=== PATIENT | male | born 1990 | race Caucasian/White ===

== ENCOUNTER 2022-08-24 17:54 | Emergency (ER) | payer SELFPAY ==
[~2022-08-24] VITALS: Ht 185.4 cm; Wt 136.0 kg
[2022-08-24 18:04] VITALS: BP 198/105
[2022-08-24] MEDS ORDERED: CLIN30GE2 TOP (18:13)
[2022-08-24] MEDS ORDERED: SULF1TAB49 PO (18:13)
[2022-08-24] MEDS ORDERED: DOXY-1 PO (18:13)
== END 2022-08-24 18:22 | disposition home or self-care (01) ==
LOC: ER 17:56
DX: S31.103A Unspecified open wound of abdominal wall, right lower quadrant without penetration into peritoneal cavity, initial encounter (principal); Z56.0 Unemployment, unspecified; Z79.899 Other long term (current) drug therapy; X58.XXXA Exposure to other specified factors, initial encounter; Y93.89 Activity, other specified; Y92.89 Other specified places as the place of occurrence of the external cause; Y99.8 Other external cause status
CPT/HCPCS: 99283

== ENCOUNTER 2024-07-08 15:50 | Inpatient (IN) | payer BC ==
[~2024-07-08] VITALS: Ht 182.9 cm; Wt 108.8 kg
[~2024-07-08 15:50] MED LIST: CLIN30GE2 TOP
[2024-07-08] MEDS: piperacillin/tazo 4.5gm/100ml 100 ML IV ONE (16:05)
[2024-07-08] MEDS ORDERED: VANCOMYCIN 1GM 200ML H20 (PEG) 200 ML IV ONE (16:05)
[2024-07-08] MEDS: normal saline 1000ML IV soln IVB ONE (16:18)
[2024-07-08] MEDS: ondansetron/PF 4mg/2ml inj IV ONE (16:19)
[2024-07-08] MEDS: morphine 4 MG/ML inj SYRINge IV ONE ×2 (16:29→16:41)
[2024-07-08] MEDS: vancomycin/NS 1 GM ADD-VANTAGE 250 ML X 1 DOSE IV ONE (16:36)
[2024-07-08 16:39] LABS: BASOPHILS % (AUTO) 0.3 % (0-1); EOSINOPHILS % (AUTO) 0.1 % (0-6); HEMATOCRIT 38.2 % (42.0-52.0); HEMOGLOBIN 13.1 g/dl (14.0-17.9); LYMPHOCYTES % (AUTO) 7.1 % (21-51); MEAN CORPUSCULAR HEMOGLOBIN 28.1 PG (27.0-31.0); MEAN CORPUSCULAR HGB CONC 34.4 g/dL (33.0-36.5); MEAN CORPUSCULAR VOLUME 81.8 FL (78-98); MEAN PLATELET VOLUME 6.7 FL (7.4-10.4); MONOCYTES # (AUTO) 0.7 X10'3 (0-0.9); MONOCYTES % (AUTO) 5.3 % (2-12); NEUTROPHILS % (AUTO) 87.2 % (42-75); PLATELET COUNT 176 X10'3 (140-440); RED BLOOD COUNT 4.67 X10'6 (4.70-6.10); RED CELL DISTRIBUTION WIDTH 13.2 % (11.5-14.5); WHITE BLOOD COUNT 13.8 X10'3 (4.5-11.0)
[2024-07-08 16:53] LABS: ALANINE AMINOTRANSFERASE 17 U/L (12-78); ALBUMIN 2.7 G/DL (3.4-5.0); ALBUMIN/GLOBULIN RATIO 0.7 (1.1-1.5); ALKALINE PHOSPHATASE 63 IU/L (46-116); ANION GAP 15 (8-16); ASPARTATE AMINO TRANSFERASE 13 U/L (10-37); BILIRUBIN,TOTAL 0.9 MG/DL (0.1-1.0); BLOOD UREA NITROGEN 11 MG/DL (7-18); BUN/CREATININE RATIO 13.6 (10.0-20.0); CALCIUM 8.2 MG/DL (8.5-10.1); CHLORIDE 100 MMOL/L (99-107); CREATININE 0.81 MG/DL (0.60-1.10); GLUCOSE 234 MG/DL (70-104); POTASSIUM 3.4 MMOL/L (3.5-5.1); SODIUM 135 MMOL/L (135-145); TOTAL CARBON DIOXIDE 19.9 MMOL/L (24-32); TOTAL PROTEIN 6.6 G/DL (6.4-8.2); eCRCL 140 ML/MIN; eGFR > 90 ML/MIN
[2024-07-08 16:56] LABS: CREATINE KINASE 82 U/L (39-308); LACTATE DEHYDROGENASE 172 U/L (85-227); MAGNESIUM 1.4 MG/DL (1.5-2.4)
[2024-07-08] MEDS ORDERED: iohexol 300mg/ml 100ml inj. ONE (16:56)
[2024-07-08] MEDS: metoclopramide 5 mg/ml inj IV ONE (19:09)
[2024-07-08] MEDS ORDERED: potassium Cl 40MEQ/1/2NS 520ml 520 ML IV PRN (20:10)
[2024-07-08] MEDS ORDERED: magnesium sulf-water 2g/50mL 50 ML IV PRN (20:10)
[2024-07-08] MEDS ORDERED: mag hydrox/Alum hydrox/simeth 30ml oral suspension PO PRN (20:10)
[2024-07-08] MEDS ORDERED: magnesium Cl slow-release 64mg tablet PO PRN (20:10)
[2024-07-08] MEDS ORDERED: magnesium sulf-water 4G/100mL 100 ML IV PRN (20:10)
[2024-07-08] MEDS ORDERED: potassium Cl 20 mEq SR tablet PO PRN (20:10)
[2024-07-08 20:32] LABS: HEMOGLOBIN A1C 10.7 % (4.5-6.2)
[2024-07-08] MEDS ORDERED: glucagon, human recombinant 1mg kit SUBCUT PRN (20:50)
[2024-07-08] MEDS ORDERED: dextrose 50%-water 50ml dispensing syringe IV PRN ×2 (20:50)
[2024-07-08] MEDS ORDERED: DEXTROSE 15 GM of carb/4 tabs (each vial/BOTTLE has 4 tablets) PO PRN ×2 (20:50)
[2024-07-08] MEDS: INSULIN LISPRO 100 UNIT/ML INSULN.PEN MULTI-DOSE SQ SCH (21:49)
[2024-07-08] MEDS: insulin glargine (Lantus) pen - multi-dose SQ SCH (21:50)
[2024-07-08 22:15] VITALS: BP 113/69; PULSE 116; RESP 14; TEMP 100.3; O2SAT 96
[2024-07-08] MEDS ORDERED: NO HOME MEDS (22:44)
[2024-07-08 22:45] LABS: % IRON SATURATION 4 % (11-46); IRON 8 UG/DL (53-167); TOTAL IRON BINDING CAPACITY 188 UG/DL (259-388)
[2024-07-08 22:46] LABS: FERRITIN 550 NG/ML (26-388)
[2024-07-08] MEDS: pantoprazole 40mg Tablet.DR PO SCH (23:05)
[2024-07-08] MEDS: normal saline 1000ml 1,000 ML IV SCH (23:05)
[2024-07-09] VITALS (7 sets, daily range): BP systolic 124–146; BP diastolic 71–89; PULSE 80–109; RESP 18–19; TEMP 97.9–99.9; O2SAT 92–97
[2024-07-09] MEDS: vancomycin/NS 1 GM ADD-VANTAGE 250 ML IV SCH (00:07)
[2024-07-09] MEDS: piperacillin/tazo 3.375gm/50ml 50 ML IV SCH (02:19)
[2024-07-09 05:55] LABS: BASOPHILS % (AUTO) 0.1 % (0-1); EOSINOPHILS % (AUTO) 0 % (0-6); HEMATOCRIT 35.7 % (42.0-52.0); HEMOGLOBIN 12.2 g/dl (14.0-17.9); LYMPHOCYTES % (AUTO) 7.7 % (21-51); MEAN CORPUSCULAR HEMOGLOBIN 28.4 PG (27.0-31.0); MEAN CORPUSCULAR HGB CONC 34.1 g/dL (33.0-36.5); MEAN CORPUSCULAR VOLUME 83.3 FL (78-98); MEAN PLATELET VOLUME 7.1 FL (7.4-10.4); MONOCYTES % (AUTO) 7.9 % (2-12); NEUTROPHILS # (AUTO) 11.1 X10'3 (1.8-7.7); NEUTROPHILS % (AUTO) 84.3 % (42-75); PLATELET COUNT 138 X10'3 (140-440); RED BLOOD COUNT 4.29 X10'6 (4.70-6.10); RED CELL DISTRIBUTION WIDTH 13.6 % (11.5-14.5); WHITE BLOOD COUNT 13.2 X10'3 (4.5-11.0)
[2024-07-09] MEDS: acetaminophen 325mg tablet PO PRN (06:11)
[2024-07-09 07:00] LABS: ALANINE AMINOTRANSFERASE 17 U/L (12-78); ALBUMIN 2.4 G/DL (3.4-5.0); ALBUMIN/GLOBULIN RATIO 0.6 (1.1-1.5); ALKALINE PHOSPHATASE 55 IU/L (46-116); ANION GAP 12 (8-16); ASPARTATE AMINO TRANSFERASE 14 U/L (10-37); BILIRUBIN,TOTAL 0.5 MG/DL (0.1-1.0); BLOOD UREA NITROGEN 14 MG/DL (7-18); BUN/CREATININE RATIO 19.2 (10.0-20.0); CALCIUM 8.1 MG/DL (8.5-10.1); CHLORIDE 101 MMOL/L (99-107); CHOL/HDL RATIO 4.1 (0.00-4.99); CHOLESTEROL 69 MG/DL (0-200); CREATININE 0.73 MG/DL (0.60-1.10); GLUCOSE 187 MG/DL (70-104); HDL CHOLESTEROL 17 MG/DL (35-60); LDL CHOLESTEROL 28 MG/DL (50-100); MAGNESIUM 1.7 MG/DL (1.5-2.4); POTASSIUM 3.7 MMOL/L (3.5-5.1); SODIUM 135 MMOL/L (135-145); TOTAL CARBON DIOXIDE 22.1 MMOL/L (24-32); TOTAL PROTEIN 6.1 G/DL (6.4-8.2); TRIGLYCERIDES 137 MG/DL (20-135); eCRCL 155 ML/MIN; eGFR > 90 ML/MIN
[2024-07-09] MEDS: docusate sod 100mg capsule PO SCH (07:53)
[2024-07-09] MEDS: morphine 2 MG/ML inj. syringe IV PRN ×2 (07:56→17:54)
[2024-07-09] MEDS: K and/or MAG REPLACEMENT MC SCH (08:00)
[2024-07-09] MEDS: ondansetron/PF 4mg/2ml inj IV PRN (10:26)
[2024-07-09] MEDS ORDERED: metoclopramide 10mg tablet PO PRN (12:25)
[2024-07-09] MEDS: VANCOMYCIN LEVEL IV ONE (13:52)
[2024-07-09] MEDS: VANCOMYCIN 1.75GM/WATER FOR INJ (PEG) 350 ML IVPB IV SCH (22:24)
[2024-07-09] MEDS ORDERED: HYDROcodone/acetaminophen 5mg/325mg tablet PO ONE (22:40)
[2024-07-09] MEDS: HYDROmorphone inj. 0.5 MG/0.5 ML DISP.SYRIN IV ONE (23:02)
[2024-07-10] VITALS (7 sets, daily range): BP systolic 126–135; BP diastolic 70–83; PULSE 88–91; RESP 16–20; TEMP 98.2–98.4; O2SAT 93–96
[2024-07-10] MEDS: HYDROmorphone inj. 0.5 MG/0.5 ML DISP.SYRIN IV ONE (03:51)
[2024-07-10 05:37] LABS: BASOPHILS % (AUTO) 0.2 % (0-1); EOSINOPHILS % (AUTO) 0.2 % (0-6); HEMATOCRIT 34.8 % (42.0-52.0); HEMOGLOBIN 11.8 g/dl (14.0-17.9); LYMPHOCYTES # (AUTO) 1.4 X10'3 (1.1-4.8); MEAN CORPUSCULAR HEMOGLOBIN 27.8 PG (27.0-31.0); MEAN CORPUSCULAR HGB CONC 33.8 g/dL (33.0-36.5); MEAN CORPUSCULAR VOLUME 82.2 FL (78-98); MEAN PLATELET VOLUME 7.5 FL (7.4-10.4); MONOCYTES # (AUTO) 0.9 X10'3 (0-0.9); MONOCYTES % (AUTO) 6.7 % (2-12); NEUTROPHILS # (AUTO) 10.7 X10'3 (1.8-7.7); NEUTROPHILS % (AUTO) 81.9 % (42-75); PLATELET COUNT 147 X10'3 (140-440); RED BLOOD COUNT 4.24 X10'6 (4.70-6.10); WHITE BLOOD COUNT 13.1 X10'3 (4.5-11.0)
[2024-07-10 06:16] LABS: ALANINE AMINOTRANSFERASE 16 U/L (12-78); ALBUMIN 2.1 G/DL (3.4-5.0); ALBUMIN/GLOBULIN RATIO 0.5 (1.1-1.5); ALKALINE PHOSPHATASE 69 IU/L (46-116); ANION GAP 10 (8-16); ASPARTATE AMINO TRANSFERASE 11 U/L (10-37); BILIRUBIN,TOTAL 0.5 MG/DL (0.1-1.0); BLOOD UREA NITROGEN 16 MG/DL (7-18); BUN/CREATININE RATIO 23.9 (10.0-20.0); CALCIUM 7.7 MG/DL (8.5-10.1); CHLORIDE 98 MMOL/L (99-107); CREATININE 0.67 MG/DL (0.60-1.10); GLUCOSE 183 MG/DL (70-104); MAGNESIUM 2.1 MG/DL (1.5-2.4); POTASSIUM 3.8 MMOL/L (3.5-5.1); SODIUM 131 MMOL/L (135-145); TOTAL CARBON DIOXIDE 23.5 MMOL/L (24-32); eCRCL 169 ML/MIN; eGFR > 90 ML/MIN
[2024-07-10] MEDS: HYDROmorphone inj. 0.5 MG/0.5 ML DISP.SYRIN IV PRN (09:14)
[2024-07-10] MEDS: metoclopramide 5 mg/ml inj IV PRN (18:05)
[2024-07-10] MEDS: temazepam 15mg capsule PO PRN (20:52)
[2024-07-11] VITALS (21 sets, daily range): BP systolic 119–169; BP diastolic 72–99; PULSE 92–110; RESP 13–23; TEMP 98.1–99.2; O2SAT 91–100
[2024-07-11 06:03] LABS: BASOPHILS % (AUTO) 0.3 % (0-1); EOSINOPHILS % (AUTO) 0.3 % (0-6); HEMATOCRIT 36.2 % (42.0-52.0); HEMOGLOBIN 12.2 g/dl (14.0-17.9); LYMPHOCYTES # (AUTO) 1.3 X10'3 (1.1-4.8); LYMPHOCYTES % (AUTO) 9.3 % (21-51); MEAN CORPUSCULAR HEMOGLOBIN 27.8 PG (27.0-31.0); MEAN CORPUSCULAR HGB CONC 33.7 g/dL (33.0-36.5); MEAN CORPUSCULAR VOLUME 82.3 FL (78-98); MEAN PLATELET VOLUME 7.2 FL (7.4-10.4); MONOCYTES # (AUTO) 1.1 X10'3 (0-0.9); NEUTROPHILS # (AUTO) 11.1 X10'3 (1.8-7.7); NEUTROPHILS % (AUTO) 82.1 % (42-75); PLATELET COUNT 180 X10'3 (140-440); RED CELL DISTRIBUTION WIDTH 13.8 % (11.5-14.5); WHITE BLOOD COUNT 13.5 X10'3 (4.5-11.0)
[2024-07-11 06:16] LABS: APTT 28 SECONDS (22-32); INR 1.2 INR; PROTHROMBIN TIME 12.3 SECONDS (9.0-12.0)
[2024-07-11 06:35] LABS: ALANINE AMINOTRANSFERASE 15 U/L (12-78); ALBUMIN 1.9 G/DL (3.4-5.0); ALBUMIN/GLOBULIN RATIO 0.5 (1.1-1.5); ALKALINE PHOSPHATASE 78 IU/L (46-116); ANION GAP 12 (8-16); ASPARTATE AMINO TRANSFERASE 16 U/L (10-37); BILIRUBIN,TOTAL 0.6 MG/DL (0.1-1.0); BLOOD UREA NITROGEN 14 MG/DL (7-18); BUN/CREATININE RATIO 23.7 (10.0-20.0); CALCIUM 7.6 MG/DL (8.5-10.1); CHLORIDE 97 MMOL/L (99-107); CREATININE 0.59 MG/DL (0.60-1.10); GLUCOSE 183 MG/DL (70-104); MAGNESIUM 1.9 MG/DL (1.5-2.4); POTASSIUM 3.4 MMOL/L (3.5-5.1); SODIUM 132 MMOL/L (135-145); TOTAL CARBON DIOXIDE 23.2 MMOL/L (24-32); eCRCL 192 ML/MIN; eGFR > 90 ML/MIN
[2024-07-11] MEDS: VANCOMYCIN LEVEL IV ONE ×2 (07:38→22:05)
[2024-07-11] MEDS: potassium Cl 20 mEq SR tablet PO PRN (07:39)
[2024-07-11] MEDS ORDERED: enalaprilat 1.25mg/ml 2ml vial IV PRN (11:30)
[2024-07-11] MEDS ORDERED: labetalol 20mg/4ml (5mg/ml) syringe IV PRN (11:30)
[2024-07-11] MEDS ORDERED: morphine 2 MG/ML inj. syringe IV PRN (11:30)
[2024-07-11] MEDS ORDERED: meperidine/PF 25mg/ml syringe IV PRN ×3 (11:30)
[2024-07-11] MEDS ORDERED: ondansetron/PF 4mg/2ml inj IV PRN (11:30)
[2024-07-11] MEDS: ringers solution, lacted 1,000 ML IV SCH (11:30)
[2024-07-11] MEDS ORDERED: proCHLORperazine 10 MG/2 ml inj IV PRN (11:30)
[2024-07-11] MEDS ORDERED: sevoflurane 250ml liquid IH ONE (11:50)
[2024-07-11] MEDS ORDERED: midazolam 1 mg/ML 2ml injection ONE (11:56)
[2024-07-11] MEDS ORDERED: fentaNYL/PF 50MCG/1 ML 2ML syringe ONE ×2 (11:57→12:16)
[2024-07-11] MEDS ORDERED: propofol inj 20 ML IV ONE (11:57)
[2024-07-11] MEDS ORDERED: LIDOcaine 2% (20mg/ml) 5ml vial ONE (11:58)
[2024-07-11] MEDS ORDERED: dexamethasone sod phosphate 4mg/ml inj. ONE (12:27)
[2024-07-11] MEDS ORDERED: ondansetron/PF 4mg/2ml inj ONE (12:27)
[2024-07-11] MEDS: morphine 4 MG/ML inj SYRINge IV PRN (13:39)
[2024-07-11] MEDS: INSULIN LISPRO 100 UNIT/ML INSULN.PEN MULTI-DOSE SQ SCH ×2 (17:34→19:56)
[2024-07-11] MEDS: LidoCAINE 2% Topical Jelly 11mL syringe (UROJET) TOP ONE (19:00)
[2024-07-12 04:55] LABS: BASOPHILS % (AUTO) 0.2 % (0-1); EOSINOPHILS % (AUTO) 0 % (0-6); HEMATOCRIT 36.6 % (42.0-52.0); HEMOGLOBIN 12.2 g/dl (14.0-17.9); LYMPHOCYTES # (AUTO) 1.5 X10'3 (1.1-4.8); LYMPHOCYTES % (AUTO) 10.9 % (21-51); MEAN CORPUSCULAR HEMOGLOBIN 27.6 PG (27.0-31.0); MEAN CORPUSCULAR HGB CONC 33.3 g/dL (33.0-36.5); MEAN PLATELET VOLUME 6.8 FL (7.4-10.4); MONOCYTES # (AUTO) 1.6 X10'3 (0-0.9); MONOCYTES % (AUTO) 11.6 % (2-12); NEUTROPHILS # (AUTO) 10.9 X10'3 (1.8-7.7); NEUTROPHILS % (AUTO) 77.3 % (42-75); PLATELET COUNT 228 X10'3 (140-440); RED CELL DISTRIBUTION WIDTH 13.9 % (11.5-14.5); WHITE BLOOD COUNT 14.1 X10'3 (4.5-11.0)
[2024-07-12 05:22] LABS: ALANINE AMINOTRANSFERASE 15 U/L (12-78); ALBUMIN 1.7 G/DL (3.4-5.0); ALBUMIN/GLOBULIN RATIO 0.4 (1.1-1.5); ALKALINE PHOSPHATASE 84 IU/L (46-116); ANION GAP 4 (8-16); ASPARTATE AMINO TRANSFERASE 18 U/L (10-37); BILIRUBIN,TOTAL 0.4 MG/DL (0.1-1.0); BLOOD UREA NITROGEN 12 MG/DL (7-18); BUN/CREATININE RATIO 15.4 (10.0-20.0); CALCIUM 7.9 MG/DL (8.5-10.1); CHLORIDE 105 MMOL/L (99-107); CREATININE 0.78 MG/DL (0.60-1.10); GLUCOSE 255 MG/DL (70-104); MAGNESIUM 2.2 MG/DL (1.5-2.4); POTASSIUM 4.8 MMOL/L (3.5-5.1); SODIUM 138 MMOL/L (135-145); TOTAL CARBON DIOXIDE 29.3 MMOL/L (24-32); TOTAL PROTEIN 5.9 G/DL (6.4-8.2); eCRCL 145 ML/MIN; eGFR > 90 ML/MIN
[2024-07-12 06:00] VITALS: BP 141/87; PULSE 93; RESP 19; TEMP 99; O2SAT 97
[2024-07-12] MEDS: magnesium hydroxide 30ml (MOM) UD suspension PO PRN (07:51)
[2024-07-12 08:00] VITALS: RESP 18; O2SAT 96
[2024-07-12] MEDS: INSULIN LISPRO 100 UNIT/ML INSULN.PEN MULTI-DOSE SQ SCH ×2 (08:58→13:07)
[2024-07-12 11:00] VITALS: BP 133/81; PULSE 91; RESP 16; TEMP 97.9; O2SAT 97
[2024-07-12 17:00] VITALS: BP 148/96; PULSE 95; RESP 14; TEMP 98.9; O2SAT 93
[2024-07-12 20:00] VITALS: RESP 16; O2SAT 96
[2024-07-12 22:00] VITALS: BP 141/85; PULSE 88; RESP 16; TEMP 98.2; O2SAT 92
[2024-07-12] MEDS: insulin glargine (Lantus) VIAL- multi-dose SQ ONE (22:25)
[2024-07-12] MEDS: insulin glargine (Lantus) pen - multi-dose SQ ONE (22:32)
[2024-07-12] MEDS ORDERED: VANCOMYCIN 2GM/400ML H20 (PEG) 400 ML IV SCH (23:00)
[2024-07-13] VITALS (9 sets, daily range): BP systolic 138–166; BP diastolic 76–104; PULSE 80–91; RESP 16–18; TEMP 97.7–98.2; O2SAT 90–96
[2024-07-13 05:21] LABS: BASOPHILS # (AUTO) 0.1 X10'3 (0-0.2); BASOPHILS % (AUTO) 0.5 % (0-1); EOSINOPHILS # (AUTO) 0.2 X10'3 (0-0.9); EOSINOPHILS % (AUTO) 1.5 % (0-6); HEMATOCRIT 35.9 % (42.0-52.0); LYMPHOCYTES # (AUTO) 2.4 X10'3 (1.1-4.8); MEAN CORPUSCULAR HEMOGLOBIN 27.7 PG (27.0-31.0); MEAN CORPUSCULAR HGB CONC 33.4 g/dL (33.0-36.5); MEAN CORPUSCULAR VOLUME 82.9 FL (78-98); MEAN PLATELET VOLUME 6.7 FL (7.4-10.4); MONOCYTES # (AUTO) 1.6 X10'3 (0-0.9); NEUTROPHILS # (AUTO) 7.3 X10'3 (1.8-7.7); PLATELET COUNT 248 X10'3 (140-440); RED BLOOD COUNT 4.33 X10'6 (4.70-6.10); RED CELL DISTRIBUTION WIDTH 13.9 % (11.5-14.5); WHITE BLOOD COUNT 11.7 X10'3 (4.5-11.0)
[2024-07-13 05:38] LABS: ALANINE AMINOTRANSFERASE 14 U/L (12-78); ALBUMIN 1.7 G/DL (3.4-5.0); ALBUMIN/GLOBULIN RATIO 0.4 (1.1-1.5); ALKALINE PHOSPHATASE 72 IU/L (46-116); ANION GAP 5 (8-16); ASPARTATE AMINO TRANSFERASE 16 U/L (10-37); BILIRUBIN,TOTAL 0.4 MG/DL (0.1-1.0); BLOOD UREA NITROGEN 14 MG/DL (7-18); BUN/CREATININE RATIO 23.3 (10.0-20.0); CALCIUM 7.7 MG/DL (8.5-10.1); CHLORIDE 105 MMOL/L (99-107); GLUCOSE 161 MG/DL (70-104); POTASSIUM 3.7 MMOL/L (3.5-5.1); SODIUM 137 MMOL/L (135-145); TOTAL CARBON DIOXIDE 27.1 MMOL/L (24-32); TOTAL PROTEIN 5.7 G/DL (6.4-8.2); eCRCL 189 ML/MIN; eGFR > 90 ML/MIN
[2024-07-13 06:07] LABS: PLATELET ESTIMATE NORMAL; TOTAL CELLS COUNTED 100
[2024-07-13] MEDS: JUVEN Smoothie Arginine/Glut./Ca2+Bmb (Juven 19.3pkt) 240ml cup PO SCH (08:24)
[2024-07-13] MEDS: LidoCAINE 2% Topical Jelly 11mL syringe (UROJET) TOP ONE (12:06)
[2024-07-13] MEDS: HYDROcodone/acetaminophen 10/325mg tab PO PRN (15:09)
[2024-07-13] MEDS: insulin glargine (Lantus) pen - multi-dose SQ ONE (22:05)
[2024-07-14] VITALS (7 sets, daily range): BP systolic 145–157; BP diastolic 84–88; PULSE 75–87; RESP 16; TEMP 97.6–98.6; O2SAT 93–95
[2024-07-14] MEDS ORDERED: VANCOMYCIN LEVEL IV ONE (10:30)
[2024-07-14] MEDS: HYDROcodone/acetaminophen 10/325mg tab PO PRN (22:34)
[2024-07-15 06:00] VITALS: BP 148/90; PULSE 84; RESP 18; TEMP 98; O2SAT 95
[2024-07-15] MEDS: LIDOcaine 4% (40 mg/ml) topical solution 50ml TP ONE (08:00)
[2024-07-15] MEDS: amox tr/potassium clavulanate 875/125mg TAB PO SCH (08:23)
[2024-07-15 10:00] VITALS: BP 144/85; PULSE 93; RESP 16; TEMP 97.2; O2SAT 94
[2024-07-15] MEDS: lactose-reduced food (Ensure Enlive) - 237ml bottle PO SCH (12:30)
[2024-07-15 18:00] VITALS: BP 137/88; PULSE 82; RESP 18; TEMP 98.1; O2SAT 97
[2024-07-15 20:00] VITALS: RESP 18; O2SAT 97
[2024-07-15 22:00] VITALS: BP 141/80; PULSE 70; RESP 16; TEMP 98.7; O2SAT 95
[2024-07-16] MEDS: HYDROmorphone inj. 0.5 MG/0.5 ML DISP.SYRIN IV PRN (00:01)
[2024-07-16 06:00] VITALS: BP 147/96; PULSE 85; RESP 14; TEMP 97.4; O2SAT 95
[2024-07-16 10:00] VITALS: BP 161/98; PULSE 79; RESP 16; TEMP 98.1; O2SAT 96
[2024-07-16] MEDS: bisacodyl 10mg suppository rectal RC PRN (10:56)
[2024-07-16 12:31] VITALS: RESP 18; O2SAT 95
[2024-07-16] MEDS: lisinopril 5mg tablet PO SCH (17:48)
[2024-07-16 18:00] VITALS: BP 175/97; PULSE 85; RESP 16; TEMP 98.6; O2SAT 97
[2024-07-16 20:00] VITALS: RESP 16; O2SAT 97
[2024-07-16] MEDS: hydrALAZINE 20mg/ml inj. IV SCH (21:02)
[2024-07-16 22:00] VITALS: BP 158/87; PULSE 89; RESP 20; TEMP 97.4; O2SAT 96
[2024-07-17 06:00] VITALS: BP 150/93; PULSE 88; RESP 14; TEMP 98; O2SAT 95
[2024-07-17 06:13] LABS: BASOPHILS # (AUTO) 0.1 X10'3 (0-0.2); BASOPHILS % (AUTO) 0.7 % (0-1); EOSINOPHILS # (AUTO) 0.2 X10'3 (0-0.9); EOSINOPHILS % (AUTO) 2.3 % (0-6); HEMATOCRIT 39.3 % (42.0-52.0); HEMOGLOBIN 13.1 g/dl (14.0-17.9); LYMPHOCYTES # (AUTO) 1.7 X10'3 (1.1-4.8); LYMPHOCYTES % (AUTO) 22.7 % (21-51); MEAN CORPUSCULAR HEMOGLOBIN 27.6 PG (27.0-31.0); MEAN CORPUSCULAR HGB CONC 33.4 g/dL (33.0-36.5); MEAN CORPUSCULAR VOLUME 82.6 FL (78-98); MEAN PLATELET VOLUME 6.2 FL (7.4-10.4); MONOCYTES # (AUTO) 0.6 X10'3 (0-0.9); MONOCYTES % (AUTO) 8.2 % (2-12); NEUTROPHILS % (AUTO) 66.1 % (42-75); PLATELET COUNT 300 X10'3 (140-440); RED BLOOD COUNT 4.76 X10'6 (4.70-6.10); RED CELL DISTRIBUTION WIDTH 13.6 % (11.5-14.5); WHITE BLOOD COUNT 7.6 X10'3 (4.5-11.0)
[2024-07-17 06:24] LABS: ALBUMIN 1.9 G/DL (3.4-5.0); ANION GAP 4 (8-16); BLOOD UREA NITROGEN 9 MG/DL (7-18); BUN/CREATININE RATIO 14.1 (10.0-20.0); CALCIUM 8.3 MG/DL (8.5-10.1); CHLORIDE 104 MMOL/L (99-107); CREATININE 0.64 MG/DL (0.60-1.10); GLUCOSE 171 MG/DL (70-104); POTASSIUM 4.4 MMOL/L (3.5-5.1); SODIUM 137 MMOL/L (135-145); TOTAL CARBON DIOXIDE 28.8 MMOL/L (24-32); eCRCL 177 ML/MIN; eGFR > 90 ML/MIN
[2024-07-17 08:00] VITALS: RESP 18
[2024-07-17] MEDS: HYDROmorphone 1 mg/ml syringe IM ONE (09:49)
[2024-07-17 11:32] VITALS: BP 139/77; PULSE 90; RESP 20; TEMP 97.5; O2SAT 93
[2024-07-17 12:07] VITALS: RESP 20; O2SAT 93
[2024-07-17 18:30] VITALS: BP 146/96; PULSE 83; RESP 18; TEMP 97.7; O2SAT 95
[2024-07-17 22:00] VITALS: BP 145/90; PULSE 84; RESP 18; TEMP 96.8; O2SAT 94
[2024-07-18 06:06] LABS: BASOPHILS # (AUTO) 0.1 X10'3 (0-0.2); BASOPHILS % (AUTO) 0.7 % (0-1); EOSINOPHILS # (AUTO) 0.2 X10'3 (0-0.9); EOSINOPHILS % (AUTO) 2.8 % (0-6); HEMATOCRIT 40.3 % (42.0-52.0); HEMOGLOBIN 13.6 g/dl (14.0-17.9); LYMPHOCYTES # (AUTO) 2.3 X10'3 (1.1-4.8); LYMPHOCYTES % (AUTO) 32.4 % (21-51); MEAN CORPUSCULAR HEMOGLOBIN 28.1 PG (27.0-31.0); MEAN CORPUSCULAR HGB CONC 33.7 g/dL (33.0-36.5); MEAN CORPUSCULAR VOLUME 83.2 FL (78-98); MEAN PLATELET VOLUME 6.2 FL (7.4-10.4); MONOCYTES # (AUTO) 0.7 X10'3 (0-0.9); MONOCYTES % (AUTO) 9.4 % (2-12); NEUTROPHILS # (AUTO) 3.9 X10'3 (1.8-7.7); NEUTROPHILS % (AUTO) 54.7 % (42-75); PLATELET COUNT 310 X10'3 (140-440); RED BLOOD COUNT 4.85 X10'6 (4.70-6.10); WHITE BLOOD COUNT 7.1 X10'3 (4.5-11.0)
[2024-07-18 06:29] LABS: ALBUMIN 2.1 G/DL (3.4-5.0); ANION GAP 5 (8-16); BLOOD UREA NITROGEN 10 MG/DL (7-18); BUN/CREATININE RATIO 14.7 (10.0-20.0); CALCIUM 8.2 MG/DL (8.5-10.1); CHLORIDE 104 MMOL/L (99-107); CREATININE 0.68 MG/DL (0.60-1.10); GLUCOSE 218 MG/DL (70-104); POTASSIUM 4.4 MMOL/L (3.5-5.1); SODIUM 137 MMOL/L (135-145); TOTAL CARBON DIOXIDE 28.3 MMOL/L (24-32); eCRCL 166 ML/MIN; eGFR > 90 ML/MIN
[2024-07-18 07:34] VITALS: BP 143/83; PULSE 84; RESP 16; TEMP 97.9; O2SAT 96
[2024-07-18 08:00] VITALS: RESP 18
[2024-07-18 10:00] VITALS: BP 151/88; PULSE 106; RESP 24; TEMP 98.4; O2SAT 95
[2024-07-18 18:00] VITALS: BP 166/91; PULSE 114; RESP 22; TEMP 98.6; O2SAT 96
[2024-07-18 20:00] VITALS: RESP 18; O2SAT 95
[2024-07-18 22:00] VITALS: BP 158/93; PULSE 84; RESP 18; TEMP 97.7; O2SAT 96
[2024-07-19 04:40] LABS: BASOPHILS # (AUTO) 0.1 X10'3 (0-0.2); BASOPHILS % (AUTO) 0.8 % (0-1); EOSINOPHILS # (AUTO) 0.2 X10'3 (0-0.9); EOSINOPHILS % (AUTO) 2.5 % (0-6); HEMATOCRIT 42.3 % (42.0-52.0); HEMOGLOBIN 14.2 g/dl (14.0-17.9); LYMPHOCYTES # (AUTO) 2.7 X10'3 (1.1-4.8); LYMPHOCYTES % (AUTO) 33.9 % (21-51); MEAN CORPUSCULAR HEMOGLOBIN 27.9 PG (27.0-31.0); MEAN CORPUSCULAR HGB CONC 33.7 g/dL (33.0-36.5); MEAN CORPUSCULAR VOLUME 82.7 FL (78-98); MEAN PLATELET VOLUME 6.1 FL (7.4-10.4); MONOCYTES # (AUTO) 0.8 X10'3 (0-0.9); MONOCYTES % (AUTO) 9.6 % (2-12); NEUTROPHILS # (AUTO) 4.2 X10'3 (1.8-7.7); NEUTROPHILS % (AUTO) 53.2 % (42-75); PLATELET COUNT 341 X10'3 (140-440); RED BLOOD COUNT 5.11 X10'6 (4.70-6.10); RED CELL DISTRIBUTION WIDTH 14.1 % (11.5-14.5); WHITE BLOOD COUNT 7.9 X10'3 (4.5-11.0)
[2024-07-19 04:56] LABS: ALBUMIN 2.4 G/DL (3.4-5.0); ANION GAP 8 (8-16); BLOOD UREA NITROGEN 10 MG/DL (7-18); BUN/CREATININE RATIO 15.9 (10.0-20.0); CALCIUM 8.9 MG/DL (8.5-10.1); CHLORIDE 104 MMOL/L (99-107); CREATININE 0.63 MG/DL (0.60-1.10); GLUCOSE 158 MG/DL (70-104); POTASSIUM 4.2 MMOL/L (3.5-5.1); SODIUM 138 MMOL/L (135-145); TOTAL CARBON DIOXIDE 26.3 MMOL/L (24-32); eCRCL 180 ML/MIN; eGFR > 90 ML/MIN
[2024-07-19 06:00] VITALS: BP 148/91; PULSE 84; RESP 22; TEMP 97.6; O2SAT 94
[2024-07-19 08:30] VITALS: RESP 18; O2SAT 95
[2024-07-19 10:00] VITALS: BP 136/88; PULSE 110; RESP 16; TEMP 97.9; O2SAT 95
[2024-07-19 18:00] VITALS: BP 150/90; PULSE 111; RESP 20; TEMP 98.4; O2SAT 95
[2024-07-19 20:00] VITALS: RESP 18; O2SAT 96
[2024-07-19 22:00] VITALS: BP 137/81; PULSE 120; RESP 16; TEMP 97.5; O2SAT 96
[2024-07-20 04:37] LABS: BASOPHILS # (AUTO) 0.1 X10'3 (0-0.2); EOSINOPHILS # (AUTO) 0.2 X10'3 (0-0.9); EOSINOPHILS % (AUTO) 2.7 % (0-6); HEMATOCRIT 43.5 % (42.0-52.0); HEMOGLOBIN 14.5 g/dl (14.0-17.9); LYMPHOCYTES # (AUTO) 3.2 X10'3 (1.1-4.8); LYMPHOCYTES % (AUTO) 38.9 % (21-51); MEAN CORPUSCULAR HEMOGLOBIN 27.5 PG (27.0-31.0); MEAN CORPUSCULAR HGB CONC 33.4 g/dL (33.0-36.5); MEAN CORPUSCULAR VOLUME 82.2 FL (78-98); MONOCYTES # (AUTO) 0.7 X10'3 (0-0.9); MONOCYTES % (AUTO) 8.5 % (2-12); NEUTROPHILS # (AUTO) 4.1 X10'3 (1.8-7.7); NEUTROPHILS % (AUTO) 48.9 % (42-75); PLATELET COUNT 352 X10'3 (140-440); RED BLOOD COUNT 5.29 X10'6 (4.70-6.10); RED CELL DISTRIBUTION WIDTH 14.1 % (11.5-14.5); WHITE BLOOD COUNT 8.3 X10'3 (4.5-11.0)
[2024-07-20 04:51] LABS: ALBUMIN 2.5 G/DL (3.4-5.0); ANION GAP 6 (8-16); BLOOD UREA NITROGEN 9 MG/DL (7-18); BUN/CREATININE RATIO 15.5 (10.0-20.0); CALCIUM 8.6 MG/DL (8.5-10.1); CHLORIDE 104 MMOL/L (99-107); CREATININE 0.58 MG/DL (0.60-1.10); GLUCOSE 204 MG/DL (70-104); POTASSIUM 4.6 MMOL/L (3.5-5.1); SODIUM 139 MMOL/L (135-145); TOTAL CARBON DIOXIDE 28.8 MMOL/L (24-32); eCRCL 195 ML/MIN; eGFR > 90 ML/MIN
[2024-07-20 06:27] VITALS: BP 149/85; PULSE 88; RESP 18; TEMP 96.8; O2SAT 96
[2024-07-20 08:00] VITALS: RESP 18; O2SAT 96
[2024-07-20 18:00] VITALS: BP 130/87; PULSE 96; RESP 19; TEMP 98.1; O2SAT 95
[2024-07-20 20:00] VITALS: RESP 19; O2SAT 95
[2024-07-21] VITALS (8 sets, daily range): BP systolic 128–148; BP diastolic 70–85; PULSE 83–95; RESP 14–18; TEMP 97–98.4; O2SAT 96
[2024-07-21] MEDS: normal saline 1000ml 1,000 ML IV SCH (02:18)
[2024-07-21 04:23] LABS: BASOPHILS # (AUTO) 0.1 X10'3 (0-0.2); EOSINOPHILS # (AUTO) 0.2 X10'3 (0-0.9); EOSINOPHILS % (AUTO) 2.7 % (0-6); HEMATOCRIT 44.2 % (42.0-52.0); HEMOGLOBIN 14.5 g/dl (14.0-17.9); LYMPHOCYTES # (AUTO) 4.2 X10'3 (1.1-4.8); LYMPHOCYTES % (AUTO) 48.6 % (21-51); MEAN CORPUSCULAR HEMOGLOBIN 27.5 PG (27.0-31.0); MEAN CORPUSCULAR HGB CONC 32.8 g/dL (33.0-36.5); MEAN CORPUSCULAR VOLUME 83.9 FL (78-98); MONOCYTES # (AUTO) 0.7 X10'3 (0-0.9); MONOCYTES % (AUTO) 8.4 % (2-12); NEUTROPHILS # (AUTO) 3.4 X10'3 (1.8-7.7); NEUTROPHILS % (AUTO) 39.3 % (42-75); PLATELET COUNT 355 X10'3 (140-440); RED BLOOD COUNT 5.26 X10'6 (4.70-6.10); WHITE BLOOD COUNT 8.7 X10'3 (4.5-11.0)
[2024-07-21 04:32] LABS: ALBUMIN 2.6 G/DL (3.4-5.0); ANION GAP 6 (8-16); BLOOD UREA NITROGEN 12 MG/DL (7-18); BUN/CREATININE RATIO 15.4 (10.0-20.0); CALCIUM 8.6 MG/DL (8.5-10.1); CHLORIDE 102 MMOL/L (99-107); CREATININE 0.78 MG/DL (0.60-1.10); GLUCOSE 260 MG/DL (70-104); POTASSIUM 4.6 MMOL/L (3.5-5.1); SODIUM 135 MMOL/L (135-145); TOTAL CARBON DIOXIDE 27.3 MMOL/L (24-32); eCRCL 145 ML/MIN; eGFR > 90 ML/MIN
[2024-07-21] MEDS ORDERED: ondansetron/PF 4mg/2ml inj IV PRN (13:05)
[2024-07-21] MEDS ORDERED: hydrALAZINE 20mg/ml inj. IV PRN (13:05)
[2024-07-21] MEDS ORDERED: morphine 4 MG/ML inj SYRINge IV PRN (13:05)
[2024-07-21] MEDS ORDERED: labetalol 20mg/4ml (5mg/ml) syringe IV PRN (13:05)
[2024-07-21] MEDS ORDERED: fentaNYL/PF 50MCG/1 ML 2ML syringe IV PRN ×2 (13:05)
[2024-07-21] MEDS: ringers solution, lacted 1,000 ML IV SCH (13:05)
[2024-07-21] MEDS ORDERED: morphine 2 MG/ML inj. syringe IV PRN (13:05)
[2024-07-22] VITALS (18 sets, daily range): BP systolic 115–149; BP diastolic 77–105; PULSE 86–129; RESP 12–18; TEMP 97.6–98.1; O2SAT 91–96
[2024-07-22] MEDS ORDERED: fentaNYL/PF 50MCG/1 ML 2ML syringe ONE ×2 (13:47→15:33)
[2024-07-22] MEDS ORDERED: BUPIVAcaine 0.5% inj/PF 30 ML ONE (13:56)
[2024-07-22] MEDS ORDERED: bacitracin 15gm ointment TP ONE (13:56)
[2024-07-22] MEDS ORDERED: propofol inj 20 ML IV ONE ×2 (14:05→15:41)
[2024-07-22] MEDS ORDERED: ondansetron/PF 4mg/2ml inj ONE ×2 (14:07→15:42)
[2024-07-22] MEDS ORDERED: HYDROmorphone 1 mg/ml syringe ONE (14:16)
[2024-07-22] MEDS ORDERED: ceFAZolin 1000mg inj ONE (14:16)
[2024-07-22] MEDS ORDERED: glycopyrrolate 0.2mg/ml inj ONE (14:31)
[2024-07-22] MEDS: HYDROmorphone inj. 0.5 MG/0.5 ML DISP.SYRIN IV STA (14:31)
[2024-07-22] MEDS ORDERED: morphine 2 MG/ML inj. syringe IV PRN (14:50)
[2024-07-22] MEDS ORDERED: labetalol 20mg/4ml (5mg/ml) syringe IV PRN (14:50)
[2024-07-22] MEDS: ringers solution, lacted 1,000 ML IV SCH (14:50)
[2024-07-22] MEDS ORDERED: meperidine/PF 25mg/ml syringe IV PRN ×3 (14:50)
[2024-07-22] MEDS ORDERED: proCHLORperazine 10 MG/2 ml inj IV PRN (14:50)
[2024-07-22] MEDS ORDERED: ondansetron/PF 4mg/2ml inj IV PRN (14:50)
[2024-07-22] MEDS ORDERED: enalaprilat 1.25mg/ml 2ml vial IV PRN (14:50)
[2024-07-22] MEDS ORDERED: sevoflurane 250ml liquid IH ONE (15:22)
[2024-07-22] MEDS ORDERED: midazolam 1 mg/ML 2ml injection ONE (15:33)
[2024-07-22] MEDS: BUPIVAcaine 0.25% w/Epi /PF 30ml vial IJ ONE (16:01)
[2024-07-22] MEDS ORDERED: dexamethasone sod phosphate 4mg/ml inj. ONE (16:12)
[2024-07-22] MEDS: morphine 4 MG/ML inj SYRINge IV PRN (16:39)
[2024-07-22] MEDS ORDERED: meperidine/PF 100mg/ml syringe IV PRN ×2 (16:43→16:45)
[2024-07-22] MEDS: meperidine/PF 100mg/ml syringe IV PRN (16:48)
[2024-07-22] MEDS: acetaminophen 1,000mg/100ml IV 100 ML IV ONE (17:49)
[2024-07-22] MEDS: HYDROmorphone inj. 0.5 MG/0.5 ML DISP.SYRIN IV ONE (21:13)
[2024-07-23 02:00] VITALS: BP 129/86; PULSE 131; RESP 18; TEMP 98.3; O2SAT 95
[2024-07-23 06:00] VITALS: BP 133/78; PULSE 117; RESP 20; TEMP 97.1; O2SAT 94
[2024-07-23 08:00] VITALS: RESP 20; O2SAT 94
[2024-07-23 10:00] VITALS: BP 119/89; PULSE 110; RESP 16; TEMP 96.7; O2SAT 94
[2024-07-23 18:30] VITALS: BP 130/79; PULSE 103; RESP 16; TEMP 97.1; O2SAT 96
[2024-07-23 22:00] VITALS: BP 153/93; PULSE 105; RESP 20; TEMP 98.2; O2SAT 100
[2024-07-24] VITALS (7 sets, daily range): BP systolic 120–143; BP diastolic 74–95; PULSE 98–115; RESP 16–18; TEMP 97–98; O2SAT 94–98
[2024-07-24 17:42] LABS: BASOPHILS # (AUTO) 0.1 X10'3 (0-0.2); BASOPHILS % (AUTO) 1.4 % (0-1); EOSINOPHILS # (AUTO) 0.2 X10'3 (0-0.9); EOSINOPHILS % (AUTO) 2.2 % (0-6); HEMATOCRIT 42.9 % (42.0-52.0); HEMOGLOBIN 14.4 g/dl (14.0-17.9); LYMPHOCYTES # (AUTO) 4.1 X10'3 (1.1-4.8); LYMPHOCYTES % (AUTO) 43.7 % (21-51); MEAN CORPUSCULAR HEMOGLOBIN 27.5 PG (27.0-31.0); MEAN CORPUSCULAR HGB CONC 33.5 g/dL (33.0-36.5); MEAN CORPUSCULAR VOLUME 82.2 FL (78-98); MEAN PLATELET VOLUME 6.3 FL (7.4-10.4); MONOCYTES # (AUTO) 0.7 X10'3 (0-0.9); MONOCYTES % (AUTO) 7.7 % (2-12); NEUTROPHILS # (AUTO) 4.2 X10'3 (1.8-7.7); PLATELET COUNT 326 X10'3 (140-440); RED BLOOD COUNT 5.21 X10'6 (4.70-6.10); WHITE BLOOD COUNT 9.4 X10'3 (4.5-11.0)
[2024-07-24 18:00] LABS: ALANINE AMINOTRANSFERASE 23 U/L (12-78); ALBUMIN 2.9 G/DL (3.4-5.0); ALBUMIN/GLOBULIN RATIO 0.6 (1.1-1.5); ALKALINE PHOSPHATASE 71 IU/L (46-116); ANION GAP 8 (8-16); ASPARTATE AMINO TRANSFERASE 14 U/L (10-37); BILIRUBIN,TOTAL 0.3 MG/DL (0.1-1.0); BLOOD UREA NITROGEN 25 MG/DL (7-18); BUN/CREATININE RATIO 32.5 (10.0-20.0); CALCIUM 8.6 MG/DL (8.5-10.1); CHLORIDE 100 MMOL/L (99-107); CREATININE 0.77 MG/DL (0.60-1.10); GLUCOSE 247 MG/DL (70-104); POTASSIUM 4.5 MMOL/L (3.5-5.1); SODIUM 136 MMOL/L (135-145); TOTAL CARBON DIOXIDE 28.1 MMOL/L (24-32); TOTAL PROTEIN 7.8 G/DL (6.4-8.2); eCRCL 147 ML/MIN; eGFR > 90 ML/MIN
[2024-07-25 06:00] VITALS: BP 124/85; PULSE 103; RESP 14; TEMP 97.1; O2SAT 96
[2024-07-25 07:59] VITALS: BP 143/102; PULSE 125; RESP 16; O2SAT 97
[2024-07-25 08:00] VITALS: RESP 14; O2SAT 96
[2024-07-25 10:00] VITALS: BP 137/92; PULSE 120; RESP 18; TEMP 97.4; O2SAT 96
[2024-07-25] MEDS: LIDOcaine 4% (40 mg/ml) topical solution 50ml TP ONE (10:07)
[2024-07-25] MEDS: HYDROmorphone 1 mg/ml syringe IV ONE (10:08)
[2024-07-25 14:34] VITALS: BP_SYST 154; PULSE 119
[2024-07-25] MEDS ORDERED: CLIN150C2 PO (18:01)
[2024-07-25] MEDS ORDERED: HYDR-3965 PO (18:01)
== END 2024-07-25 19:14 | disposition home health service (06) | DRG 854 ==
LOC: ER 15:51 → ED HOLD 20:10 → SUR 3N 22:10
PROVIDERS: ADMIT Surgery Surgical Critical Care; ATTEND Internal Medicine
PROC: BW211ZZ Computerized Tomography (CT Scan) of Abdomen and Pelvis using Low Osmolar Contrast (ICD-10-PCS; 2024-07-08)
PROC: 0V950ZZ Drainage of Scrotum, Open Approach (ICD-10-PCS; 2024-07-11)
PROC: 0D9P0ZZ Drainage of Rectum, Open Approach (ICD-10-PCS; principal; 2024-07-11 11:50)
PROC: 0JBB0ZZ Excision of Perineum Subcutaneous Tissue and Fascia, Open Approach (ICD-10-PCS; 2024-07-22)
DX: A41.9 Sepsis, unspecified organism (principal); E87.1 Hypo-osmolality and hyponatremia; K61.1 Rectal abscess; L02.215 Cutaneous abscess of perineum; L03.314 Cellulitis of groin; L03.315 Cellulitis of perineum; N49.2 Inflammatory disorders of scrotum; L73.1 Pseudofolliculitis barbae; L73.2 Hidradenitis suppurativa; E11.65 Type 2 diabetes mellitus with hyperglycemia; E66.9 Obesity, unspecified; D64.9 Anemia, unspecified; N43.3 Hydrocele, unspecified; Z79.899 Other long term (current) drug therapy; Z68.31 Body mass index [BMI] 31.0-31.9, adult
CPT/HCPCS: 96365; 96366; 96367; 96375; 99285; Z7506; Z7508; 36415; 71045; 72192; 74177; 76870; 80048; 80053; 80061; 80202; 82550; 82728; 82948; 83036; 83540; 83550; 83605; 83615; 83735; 84145; 84484; 85007; 85025; 85610; 85651; 85730; 86140; 87040; 87070; 87075; 87081; 93005; 93976; 97116; 97161; 97530; A4215; A4314; A4615; A4618; A4649; A5200; A6253; A6266; A6402; A6449; A7000; G0378; J0131; J0360; J0690; J1100; J1171; J1815; J2003; J2175; J2250; J2270; J2405; J2543; J2704; J2765; J3010; J3370; J3372; J3490; J7030; J7120; Q9967; S0020